=== PATIENT | female | born 1950 | race Caucasian/White ===

== ENCOUNTER → 2022-02-24 12:25 | Outpatient (CLI) | payer MEDICARE, OTHER, SELFPAY ==
[2022-02-24 14:35] LABS: Chloride 105 mmol/L (98-107)
[2022-02-24 14:36] LABS: Potassium 4.5 mmoL/L (3.5-5.1); Sodium 138 mmol/L (136-145)
[2022-02-24 14:38] LABS: Alanine Aminotransferase 19 U/L (12-78); Alkaline Phosphatase 65 U/L (38-126); Anion Gap 11.5 mEq/L (5-15); Aspartate Amino Transferase 26 U/L (14-36); Bilirubin,Total 0.5 mg/dl (0.2-1.3); Blood Urea Nitrogen 22 mg/dl (7-17); Carbon Dioxide 26 mmol/L (22.0-30.0); Cholesterol 231 mg/dl (140-200); Estimated Glomerular Filt Rate 82 ml/min (>60); GFR (African American) 100 ML/MIN (>60); Triglycerides 378 mg/dl (30-150); VLDL Cholesterol 76 mg/dL (0-40)
[2022-02-24 14:39] LABS: Albumin Level 3.9 g/dl (3.5-5.0); Albumin/Globulin Ratio 1.6 (1.1-1.8); Chol/HDL Ratio 4.6 (1-3.5); Globulin 2.5 g/dL (1.3-3.2); Glucose 78 mg/dl (74-100); HDL Cholesterol 50 mg/dl (40-60); Total Protein,Serum 6.4 g/dl (6.3-8.2)
[2022-02-24 14:51] LABS: Direct LDL Cholesterol 109.39 mg/dL (100-129)
[2022-02-24 15:21] LABS: Thyroid Stimulating Hormone 0.69 uIU/mL (0.465-4.68)
== END ==
PROVIDERS: PCP Internal Medicine; Visit Provider Internal Medicine
DX: I10 Essential (primary) hypertension (principal); E78.5 Hyperlipidemia, unspecified; R63.5 Abnormal weight gain; R53.83 Other fatigue
CPT/HCPCS: 80053; 80061; 84443

== ENCOUNTER → 2022-08-30 09:19 | Outpatient (CLI) | payer MEDICARE, OTHER, SELFPAY ==
[2022-08-30 17:32] LABS: Basophils # 0.1 K/mm3 (0-0.2); Basophils % 1.3 % (0.1-2.0); Eosinophils # 0.2 K/mm3 (0.0-0.4); Eosinophils % 2.8 % (0.1-12.0); Hematocrit 42.8 % (37.0-47.0); Lymphocytes # 2.9 K/mm3 (0.7-4.5); Lymphocytes % 42.4 % (10-50); Mean Corpuscular HGB Conc 32.6 g/dL (31.8-35.4); Mean Corpuscular Hemoglobin 31.6 pg (27.0-31.2); Mean Platelet Volume 10.2 fl (7.4-10.4); Monocytes # 0.4 K/mm3 (0.1-1.0); Neutrophils # 3.2 K/mm3 (1.8-7.8); Neutrophils % 47.4 % (37.0-80.0); Platelet Count 374 K/mm3 (142-424); Red Blood Count 4.41 M/mm3 (4.20-5.40); Red Cell Distribution Width 13.8 % (11.5-17.5); White Blood Count 6.8 K/mm3 (4.8-10.8)
[2022-08-30 19:21] LABS: Alanine Aminotransferase 25 U/L (12-78); Albumin/Globulin Ratio 1.6 (1.1-1.8); Alkaline Phosphatase 71 U/L (38-126); Anion Gap 17.5 mEq/L (5-15); Aspartate Amino Transferase 33 U/L (14-36); Bilirubin,Total 0.4 mg/dl (0.2-1.3); Blood Urea Nitrogen 20 mg/dl (7-17); Calcium 8.9 mg/dl (8.4-10.2); Carbon Dioxide 24 mmol/L (22.0-30.0); Chloride 100 mmol/L (98-107); Chol/HDL Ratio 4.4 (1-3.5); Cholesterol 224 mg/dl (140-200); Estimated Glomerular Filt Rate 98 ml/min (>60); GFR (African American) 119 ML/MIN (>60); Globulin 2.5 g/dL (1.3-3.2); Glucose 77 mg/dl (74-100); HDL Cholesterol 51 mg/dl (40-60); Potassium 4.5 mmoL/L (3.5-5.1); Sodium 137 mmol/L (136-145); Total Protein,Serum 6.5 g/dl (6.3-8.2); Triglycerides 386 mg/dl (30-150); VLDL Cholesterol 77 mg/dL (0-40)
[2022-08-30 19:33] LABS: Direct LDL Cholesterol 107.48 mg/dL (100-129)
== END ==
PROVIDERS: PCP Internal Medicine; Visit Provider Internal Medicine
DX: I10 Essential (primary) hypertension (principal); E78.5 Hyperlipidemia, unspecified; E87.1 Hypo-osmolality and hyponatremia
CPT/HCPCS: 80053; 80061; 85025

== ENCOUNTER → 2022-09-12 12:37 | Outpatient (CLI) | payer MEDICARE, OTHER, SELFPAY ==
--- NOTE | 2022-09-12 12:44 | MM_ITS ---
PROCEDURE INFORMATION: Exam: MG Bilateral Screening 3D Mammography Exam date and time: 09/12/2022 12:52 PM Age: 72 years old Clinical indication: Screening examination. Her niece had breast cancer. TECHNIQUE: Imaging protocol: Bilateral Screening tomosynthesis and 2D mammography including computer-aided detection (CAD) when performed. COMPARISON: 1. MG DMSB DIG MAMM-SCREEN HAYLIE W/CAD 10/02/2017 4:22 PM 2. MG DMSB DIG MAMM-SCREEN HAYLIE 08/31/2016 10:55 AM 3. MG DMSB DIG MAMM-SCREEN HAYLIE 07/29/2015 1:45 PM 4. MG DMSB DIG MAMM-SCREEN HAYLIE 07/13/2014 4:59 PM FINDINGS: MAMMOGRAPHY: Breast composition: There are scattered areas of fibroglandular density. Mass/Asymmetric density: Focal tubular nodular asymmetries, up to 1-1.5 cm, in the left upper outer quadrant middle to posterior 3rd and 11-12:00 posterior 3rd, CC frame 45 and MLO frame 33. Architectural distortion: None. Calcifications: No suspicious calcifications. Skin thickening: None. Axillary adenopathy: None. IMPRESSION: Patient to be recalled for left diagnostic mammographic spot compression in CC and MLO and left breast ultrasound for further evaluation of tubular asymmetries which may be dilated ducts in deeper aspect of the breast. ASSESSMENT: BI-RADS Category 0: Incomplete- Need Additional Imaging Evaluation and/or Prior Mammograms for Comparison
== END ==
PROVIDERS: PCP Internal Medicine; Visit Provider Internal Medicine
DX: Z12.31 Encounter for screening mammogram for malignant neoplasm of breast (principal)
CPT/HCPCS: 77063; 77067

== ENCOUNTER → 2022-09-25 09:46 | Outpatient (POV) | payer MEDICARE, OTHER, SELFPAY ==
[2022-09-25 10:04] VITALS: BP 112/90; PULSE 111; RESP 20; TEMP 36.7; O2SAT 98; BMI 31.7
--- NOTE | 2022-09-25 10:35 | EXP.PAIN.OV ---
HPI Data of Consult Patient: new to practice Consult date: 09/25/22 Requesting Physician: Ann Sepulveda APRN Primary Care Provider: Cayetano Valdez MD Consult Narrative History of present illness: Ms. Claros is a 72 year old female who presents today as a new patient. She is a referral from Cayetano Valdez's office. Today she rates her pain a 5 out of 10. She states her pain is in her mid to low back with no radiating symptoms into her lower extremities. Patient denies any new trauma or injury. Patient states this has been going on for years and has progressively worsened over time. Patient does describe this as a aching, throbbing sensation that is constant but worse with increased activity. Patient states her low back pain is chronic and frequently has radiating symptoms up her mid back. Patient does have a history of bursitis which she has gotten injections in the past for. Her last injection was on her left bursa on September 03. Patient states she did get significant relief with this injection however she did then go on a trip to [place] and was on her feet extensively which caused additional pain. Patient states she has also had epidural injections in the past that provided improvement. She has had back surgery in October 2015 where they did a left L4-5 laminotomy with decompression of the left L5 nerve root. Patient states she has been to physical therapy in the past around 2018. Patient states she does use a heating pad for her back that helps provide improvement and ice to her hip. Patient also uses [id number] Biofreeze and Aspercreme as needed. Patient is prescribed meloxicam turmeric and a muscle relaxer as needed. Patient also uses [id number] Tylenol arthritis to provide improvement of her symptoms. Patient did present today with 2014 imaging that showed multilevel facet arthropathy, degenerative disc disease of lumbar spine with multilevel neural foraminal narrowing patient is not on any blood thinners. Patient has not had any additional imaging. Patient is currently managed with Enterra mean by Dr. Valdez's office. Her Adrián is [id number]. It has been reviewed and appropriate. CC: Ann Sepulveda APRN [facility] Medical History (Updated 09/25/22 @ 10:40 by Ann Sepulveda APRN) Bilateral cataracts Degenerative disc disease, lumbar History of left heart catheterization (LHC) HLD (hyperlipidemia) HTN (hypertension) Osteoarthritis Surgical History (Updated 09/25/22 @ 10:10 by Fela Martin, BRANDON) H/O arthroscopy of right knee H/O repair of left rotator cuff H/O tubal ligation History of cholecystectomy History of total abdominal hysterectomy Social History (Updated 09/25/22 @ 10:11 by Fela Martin, RN) Smoking Status: Never smoker alcohol intake: never current occupational status: retired Travel in the last 8 weeks: None Review of Systems Review of Systems Review of systems:: pertinent systems reviewed and negative unless documented below Review of systems (narrative): Review of Systems: General: No recent weight changes, no fever, no sleep disturbances Respiratory: No cough, no shortness of air, no recurring pulmonary infections Cardiovascular/peripheral vascular: No chest pain, no palpitations, no edema, no shortness of breath Gastrointestinal: No new onset incontinence, normal bowel movements reported Genitourinary: No new onset incontinence Musculoskeletal: Mid/low back pain Psychiatric: [Normal mood/affect] Neurological: [Denies weakness in extremities], [denies balance issues] Meds Home Medications and Allergies Home Medications Medication Instructions Recorded Confirmed Type cetirizine 10 mg tablet 10 mg PO DAILY ALLERGIES 09/25/22 09/25/22 History cyclobenzaprine 5 mg tablet 5 mg PO TIDP PRN MUSCLE SPASMS 09/25/22 09/25/22 History estradiol 1 mg tablet 1 mg PO DAILY HRT 09/25/22 09/25/22 History losartan 50 mg tablet 50 mg PO DAILY BLOOD PRESSURE 09/25/22 09/25/22 Histor
== END ==
PROVIDERS: PCP Internal Medicine; Visit Provider Nurse Practitioner Family
DX: M51.36 Other intervertebral disc degeneration, lumbar region (principal); M47.816 Spondylosis without myelopathy or radiculopathy, lumbar region; M54.6 Pain in thoracic spine
CPT/HCPCS: 99202; G0463

== ENCOUNTER 2022-09-29 14:42 | Day surgery (SDC) | payer MEDICARE, OTHER, SELFPAY ==
[2022-09-29 15:05] VITALS: BP 163/89; PULSE 96; RESP 20; TEMP 36.4; O2SAT 96; BMI 31.7
[2022-09-29 15:42] VITALS: BP 150/83; PULSE 87; RESP 18; O2SAT 96
[2022-09-29 15:45] VITALS: BP 150/83; PULSE 87; RESP 18; O2SAT 96
[2022-09-29 16:11] VITALS: BP 136/85; PULSE 83; RESP 20
--- NOTE | 2022-09-29 16:17 | P.PCN_ITS ---
Procedure Date: 09/29/22 Time: 16:19 Anesthesiologist:: Cristian May MD Complications:: None Pre-procedure Diagnosis:: Degenerative disc disease of thoracic spine with thoracic radiculopathy symptoms and increasing mid back pain. Post-procedure Diagnosis:: Same Indications for Procedure:: Patient is a pleasant 72-year-old white female who we are treating for mid back pain and degenerative disc disease of thoracic spine with thoracic radiculopathy symptoms. We will do a thoracic epidural steroid injection today to see if this helps with her pain symptoms. Procedure Details:: Thoracic epidural steroid injection under fluoroscopy Informed consent was obtained risk and benefits of the procedure were explained the patient. Patient was taken the procedure room. Mid back was prepped using ChloraPrep. The skin and subtenons tissues were anesthetized using lidocaine. A 17-gauge epidural needle was inserted and advanced into the T11-T12 interspace. After confirmation of needle placement in the epidural space a catheter was inserted and advanced to the T3-T4 interspace. There was good spread of dye throughout the thoracic epidural space. We then injected Depo- Medrol 80 mg plus saline 2 mL. Patient tolerated procedure well with no complications. Plan and disposition: Follow-up with this patient 2 weeks. Will reevaluate her symptoms at that time. Plan and Disposition:: We will follow-up with this patient in 2 weeks. Will reevaluate symptoms at that time.
== END 2022-09-29 16:12 | disposition home or self-care (01) ==
LOC: SC.PAINP 14:46
PROVIDERS: PCP Internal Medicine; Visit Provider Anesthesiology
DX: M51.14 Intervertebral disc disorders with radiculopathy, thoracic region (principal)
CPT/HCPCS: 62321; J1040; Q9966

== ENCOUNTER → 2022-10-04 13:50 | Outpatient (CLI) | payer MEDICARE, OTHER, SELFPAY ==
--- NOTE | 2022-10-04 13:53 | MM_ITS ---
PROCEDURE INFORMATION: Exam: US Left Breast, Complete MG Left Diagnostic Breast Tomosynthesis Exam date and time: 10/04/2022 1:51 PM Age: 72 years old Clinical indication: Patient recalled on the basis of a screening mammogram for further evaluation; Left breast; asymmetries TECHNIQUE: Imaging protocol: Complete ultrasound of all four quadrants of the Left breast and the retroareolar regions, including ultrasound of the axilla when performed. Left Diagnostic tomosynthesis and 2D mammography including computer-aided detection (CAD) when performed. Unilateral or bilateral exam. COMPARISON: 1. MG MM DIG SCREENING MAMM BI W/CAD 09/12/2022 12:52 PM 2. MG DMSB DIG MAMM-SCREEN HAYLIE W/CAD 10/02/2017 4:22 PM FINDINGS: MAMMOGRAPHY: Digital diagnostic spot compression views of the left breast and 90 degree lateral view of the left breast demonstrate normal overlapping fibroglandular structures without persistent mass or asymmetry identified. ULTRASOUND: Sonographic images of the left breast including the retroareolar region, all 4 quadrants and the axilla do not demonstrate any solid masses. Superficial 0.5 cm cyst in the 3 o'clock axis 2 cm from the nipple. Cursors were placed over normal portion of duct in the upper outer quadrant. No architectural distortion or acoustical shadowing. No skin thickening or axillary adenopathy. IMPRESSION: No mammographic or sonographic evidence of malignancy. Annual bilateral mammographic screening is recommended unless otherwise clinically indicated. ASSESSMENT: BI-RADS Category 2: Benign
== END ==
PROVIDERS: PCP Internal Medicine; Visit Provider Internal Medicine
DX: R92.8 Other abnormal and inconclusive findings on diagnostic imaging of breast (principal)
CPT/HCPCS: 76641; 77061; 77065; G0279

== ENCOUNTER → 2022-10-12 15:06 | Outpatient (POV) | payer MEDICARE, OTHER, SELFPAY ==
[2022-10-12 15:27] VITALS: BP 143/71; PULSE 95; RESP 18; O2SAT 97; BMI 31.7
--- NOTE | 2022-10-12 15:41 | EXP.PAIN.SOA ---
[facility] Pain Management SOAP Note Subjective:: Patient is a pleasant 72-year-old female who presents today for follow-up of thoracic epidural steroid injection at T3-T4 on 09/29/2022. We are currently treating the patient for degenerative disc disease of thoracic and lumbar spine with thoracic and lumbar radiculopathy symptoms, mid back pain, low back pain. Today the patient states that she has had at least 50 to 60% improvement following this injection and feels like it is continuing to give relief. Today she rates her pain a 4 out of 10. She states the pain is in her mid to low back and her left hip. Patient states that she has had bursa injections in the past from a different provider that provided significant improvement. Patient denies any new trauma or injury. She states she did recently have to go to the airport and was running to find her plane as well as increased walking and feels like she may have aggravated her pain symptoms. Patient does have a history of L4-L5 laminectomy with decompression of the left L5 nerve root. Patient has been to physical therapy in the past that provided some improvement. She also continues to use a heating pad as well as ice and Biofreeze and Aspercreme. Patient was prescribed Flexeril 5 mg 3 times daily as needed and states this does provide additional improvement. Patient will also occasionally use Tylenol arthritis as well. Patient was prescribed compounding cream at our last visit and states this has provided some additional improvement of her symptoms. Her Adrián is [phone]. It has been reviewed and appropriate. Review of Systems: General: No recent weight changes, no fever, no sleep disturbances Respiratory: No cough, no shortness of air, no recurring pulmonary infections Cardiovascular/peripheral vascular: No chest pain, no palpitations, no edema, no shortness of breath Gastrointestinal: No new onset incontinence, normal bowel movements reported Genitourinary: No new onset incontinence Musculoskeletal: Mid/low back pain, left hip pain Psychiatric: [Normal mood/affect] Neurological: [Denies weakness in extremities], [denies balance issues] Objective:: Physical Exam: General: Alert and oriented x3, no acute distress, pleasant and cooperative Lungs: Respirations even and unlabored, symmetrical chest expansion Eyes: PERRL Musculoskeletal: Flexion and extension of lumbar [spine] somewhat guarded secondary to pain, [antalgic gait noted]point tenderness along the left greater trochanteric bursa Neurological: Speech clear, no gross sensory deficit Assessment:: Degenerative disc disease of thoracic and lumbar spine with thoracic and lumbar radiculopathy symptoms, mid back pain, low back pain, left greater trochanteric bursitis Plan:: Patient is experiencing worsening left hip pain at today's visit. Patient did have limited range of motion of her lumbar spine and point tenderness along her left greater trochanteric bursa. I have discussed with the patient that she may benefit from a left greater trochanteric bursa injection. Risk and benefits were discussed with the patient. She would like to proceed forward with this plan of care. We will schedule her for a left bursa injection at today's visit. Patient has been instructed to contact the clinic with any concerns before the next appointment. Dr. May has reviewed this note and agrees with this plan of care. This note was dictated using voice recognition software and make contain errors or omissions. [facility] Medical History (Updated 09/29/22 @ 15:09 by Karlee Smith RN) Allergies Bilateral cataracts Degenerative disc disease, lumbar GERD (gastroesophageal reflux disease) History of left heart catheterization (LHC) HLD (hyperlipidemia) HTN (hypertension) Osteoarthritis Surgical History H/O arthroscopy of right knee H/O repair of left rotator cuff H/O tubal ligation History of cholecystectomy History of
== END ==
PROVIDERS: PCP Internal Medicine; Visit Provider Nurse Practitioner Family
DX: M51.16 Intervertebral disc disorders with radiculopathy, lumbar region (principal); M51.14 Intervertebral disc disorders with radiculopathy, thoracic region
CPT/HCPCS: 99212; G0463

== ENCOUNTER → 2022-10-24 11:17 | Day surgery (SDC) | payer MEDICARE, OTHER, SELFPAY ==
[2022-10-24 11:35] VITALS: BP 147/84; PULSE 95; RESP 18; TEMP 36.6; O2SAT 97; BMI 31.7
[2022-10-24 11:42] VITALS: BP 131/90; PULSE 88; RESP 18; O2SAT 97
[2022-10-24 11:43] VITALS: BP 131/90; PULSE 88; RESP 18; O2SAT 97
--- NOTE | 2022-10-24 12:07 | P.PCN_ITS ---
Procedure Date: 10/24/22 Time: 11:30 Anesthesiologist:: Morris Berger CRNA Complications:: None Pre-procedure Diagnosis:: Left lateral hip pain. Post-procedure Diagnosis:: Same Indications for Procedure:: Patient is a pleasant 72-year-old female that comes our clinic today for left trochanteric bursa injection. Patient complains of left lateral hip pain that she references as severe. She rates it 8/10. Pain increases with ambulating. Patient unable to sleep on the left side. Procedure Details:: Procedure:Left trochanteric bursa injection under fluoroscopy We then moved to the left trochanteric bursa.~ C-arm fluoroscopy was used to view the left greater trochanter.~ The skin and subcutaneous tissues overlying the left greater trochanter were anesthetized using lidocaine, 1.5% and a 25- gauge needle.~ After this, a 22-gauge spinal needle was inserted and advanced until it contacted the left greater trochanter.~ Dye was injected and good spread was seen throughout the left trochanteric bursa. After this, approximately 5 mL of bupivacaine, 0.25% and Depo-Medrol, 40 mg was incrementally injected into the left trochanteric bursa.~ The patient tolerated the procedure well with no complications. Plan and Disposition:: Patient was discharged without incident.
== END | disposition home or self-care (01) ==
PROVIDERS: PCP Internal Medicine; Visit Provider Nurse Anesthetist, Certified Registered
DX: M70.62 Trochanteric bursitis, left hip (principal); M51.16 Intervertebral disc disorders with radiculopathy, lumbar region; M51.14 Intervertebral disc disorders with radiculopathy, thoracic region
CPT/HCPCS: 20610; J1040

== ENCOUNTER → 2022-11-06 10:48 | Outpatient (POV) | payer MEDICARE, OTHER, SELFPAY ==
[2022-11-06 11:04] VITALS: BP 139/82; PULSE 91; RESP 18; O2SAT 97; BMI 31.2
--- NOTE | 2022-11-06 11:17 | EXP.PAIN.SOA ---
[facility] Pain Management SOAP Note Subjective:: Patient is a pleasant 72-year-old female who presents today for follow-up of left trochanteric bursa injection on 10/24/2022. We are currently treating the patient for degenerative disc disease of thoracic and lumbar spine with thoracic and lumbar radiculopathy symptoms, mid back pain, low back pain. Today the patient states she has had at least 80% improvement in her hip symptoms following this injection and feels like it is still continuing to provide relief. Patient rates her pain a 3 out of 10. Patient denies any new trauma or injury. Patient denies any change to location or type of pain she experiences. Patient previously had a thoracic epidural steroid injection at T3-T4 on 09/29/2022. Patient states this injection has still been providing relief. Patient has a history of of L4-L5 laminectomy with decompression on the left L5 nerve root. Patient continues to use Tylenol arthritis and compounding cream to provide additional relief. Patient states she has had significant improvement following her injections and feels like she is able to get around with decreased pain symptoms. Patient states that she was able to go shopping the other day and spent all day on her feet without having to sit down due to the pain. Her Adrián is [phone]. It is been reviewed and appropriate. Review of Systems: General: No recent weight changes, no fever, no sleep disturbances Respiratory: No cough, no shortness of air, no recurring pulmonary infections Cardiovascular/peripheral vascular: No chest pain, no palpitations, no edema, no shortness of breath Gastrointestinal: No new onset incontinence, normal bowel movements reported Genitourinary: No new onset incontinence Musculoskeletal: Hip pain Psychiatric: [Normal mood/affect] Neurological: [Denies weakness in extremities], [denies balance issues] Objective:: Physical Exam: General: Alert and oriented x3, no acute distress, pleasant and cooperative Lungs: Respirations even and unlabored, symmetrical chest expansion Eyes: PERRL Musculoskeletal: Flexion and extension of lumbar [spine] somewhat guarded secondary to pain, [antalgic gait noted] Neurological: Speech clear, no gross sensory deficit Assessment:: Degenerative disc disease of thoracic and lumbar spine with thoracic and lumbar radiculopathy symptoms, mid back pain, low back pain Plan:: Patient has had significant improvement of her symptoms following her left bursa injection. At this time the patient does not require any additional injective therapy. Patient will return to clinic in 3 months for reevaluation of symptoms and follow-up. Patient has been instructed to contact the clinic with any concerns before the next appointment. Dr. May has reviewed this note and agrees with this plan of care. This note was dictated using voice recognition software and make contain errors or omissions. [facility] Disclaimer: The information contained in this section may have been updated after the patient was seen, as this information can be updated by other users. Medical History Allergies Bilateral cataracts Degenerative disc disease, lumbar GERD (gastroesophageal reflux disease) History of left heart catheterization (LHC) HLD (hyperlipidemia) HTN (hypertension) Osteoarthritis Surgical History H/O arthroscopy of right knee H/O repair of left rotator cuff H/O tubal ligation History of cholecystectomy History of total abdominal hysterectomy Family History Other No significant family history Social History Smoking Status: Never smoker alcohol intake: never current occupational status: retired Travel in the last 8 weeks: None
== END ==
PROVIDERS: PCP Internal Medicine; Visit Provider Nurse Practitioner Family
DX: M51.16 Intervertebral disc disorders with radiculopathy, lumbar region (principal); M51.14 Intervertebral disc disorders with radiculopathy, thoracic region
CPT/HCPCS: 99212; G0463

== ENCOUNTER → 2022-12-08 09:55 | Outpatient (CLI) | payer MEDICARE, OTHER, SELFPAY ==
--- NOTE | 2022-12-08 10:01 | CT_ITS ---
FINAL REPORT CLINICAL HISTORY: MEMORY LOSS,CONFUSION FINDINGS: Axial images of the head were obtained without contrast. Coronal reformatted images were also obtained. This study was performed with techniques to keep radiation doses as low as reasonably achievable (ALARA). Individualized dose reduction techniques using automated exposure control or adjustment of mA and/or kV according to the patient''s size were employed. There is generalized age-appropriate atrophy. Periventricular low-attenuation areas are seen consistent with mild chronic ischemic changes. There is a small chronic lacunar infarct in the anterior left thalamus. There is no evidence of intracranial hemorrhage or mass. There is no evidence of acute infarct. There is no evidence of shift of the midline structures. No skull abnormality is seen on the bone window images. IMPRESSION: Atrophy and mild periventricular chronic ischemic changes. No acute intracranial abnormality identified. Reviewed, Interpreted and Dictated by Bg Kelley III, MD Transcribed by Lorie Rievra Authenticated and [facility]
[2022-12-08 12:51] LABS: Basophils # 0.1 K/mm3 (0-0.2); Basophils % 1.2 % (0.1-2.0); Eosinophils # 0.2 K/mm3 (0.0-0.4); Eosinophils % 3.4 % (0.1-12.0); Hematocrit 44.8 % (37.0-47.0); Hemoglobin 13.6 g/dL (12.2-16.2); Lymphocytes # 3.1 K/mm3 (0.7-4.5); Lymphocytes % 43.6 % (10-50); Mean Corpuscular HGB Conc 30.3 g/dL (31.8-35.4); Mean Corpuscular Hemoglobin 31.1 pg (27.0-31.2); Mean Corpuscular Volume 102.8 fl (81-99); Mean Platelet Volume 9.3 fl (7.4-10.4); Monocytes # 0.3 K/mm3 (0.1-1.0); Monocytes % 4.1 % (1.7-9.3); Neutrophils # 3.3 K/mm3 (1.8-7.8); Neutrophils % 47.6 % (37.0-80.0); Platelet Count 422 K/mm3 (142-424); Red Blood Count 4.36 M/mm3 (4.20-5.40); Red Cell Distribution Width 14.1 % (11.5-17.5)
[2022-12-08 13:10] LABS: Alanine Aminotransferase 25 U/L (12-78); Albumin Level 4.2 g/dl (3.5-5.0); Albumin/Globulin Ratio 1.6 (1.1-1.8); Alkaline Phosphatase 68 U/L (38-126); Anion Gap 8.5 mEq/L (5-15); Aspartate Amino Transferase 30 U/L (14-36); Bilirubin,Total 0.5 mg/dl (0.2-1.3); Blood Urea Nitrogen 19 mg/dl (7-17); Calcium 9.4 mg/dl (8.4-10.2); Carbon Dioxide 27 mmol/L (22.0-30.0); Chloride 104 mmol/L (98-107); Estimated Glomerular Filt Rate 82 ml/min (>60); GFR (African American) 99 ML/MIN (>60); Globulin 2.6 g/dL (1.3-3.2); Glucose 92 mg/dl (74-100); Potassium 4.5 mmoL/L (3.5-5.1); Sodium 135 mmol/L (136-145); Total Protein,Serum 6.8 g/dl (6.3-8.2)
[2022-12-08 14:01] LABS: Vitamin B12 806 pg/mL (239-931)
[2022-12-08 15:12] LABS: Erythrocyte Sedimentation Rate 23 mm/hr (0-30)
[2022-12-08 18:14] LABS: Free T4 (Free Thyroxine) 1.22 ng/dl (0.78-2.19)
== END ==
PROVIDERS: PCP Internal Medicine; Visit Provider Internal Medicine
DX: I10 Essential (primary) hypertension (principal); E03.9 Hypothyroidism, unspecified; E78.5 Hyperlipidemia, unspecified; R41.3 Other amnesia; R41.0 Disorientation, unspecified
CPT/HCPCS: 70450; 80053; 82607; 84439; 84443; 85025; 85651

== ENCOUNTER → 2022-12-28 10:53 | Outpatient (CLI) | payer MEDICARE, OTHER, SELFPAY ==
[2022-12-28 12:54] LABS: Folate > 20.00 ng/mL
[2022-12-29 18:08] LABS: Rapid Plasma Reagin Ab Titer Non Reactive (NonRea<1:1)
[2022-12-30 06:07] LABS: Antinuclear Antibodies (ANA) Negative
== END ==
PROVIDERS: PCP Internal Medicine; Visit Provider Nurse Practitioner Family
DX: E78.5 Hyperlipidemia, unspecified (principal); G31.84 Mild cognitive impairment of uncertain or unknown etiology; I10 Essential (primary) hypertension; R06.83 Snoring; R47.89 Other speech disturbances; Z68.31 Body mass index [BMI] 31.0-31.9, adult; Z86.69 Personal history of other diseases of the nervous system and sense organs
CPT/HCPCS: 36415; 82746; 86038; 86225; 86235; 86593

== ENCOUNTER → 2023-01-04 12:39 | Outpatient (CLI) | payer MEDICARE, OTHER, SELFPAY ==
--- NOTE | 2023-01-04 12:39 | MR_ITS ---
FINAL REPORT CLINICAL HISTORY: Transient alteration in awareness, eval for CVA. FINDINGS: Multiplanar MR imaging of the brain was performed without and with contrast. There is mild abnormal signal involving the periventricular and subcortical white matter. No foci of cortical signal abnormality is seen. There is no evidence of intracranial hemorrhage or mass. No abnormal extra-axial fluid collection is seen. The ventricular size is within normal limits. There is no evidence of shift of the midline structures. The posterior fossa and brainstem have an unremarkable appearance. No area of abnormal restricted diffusion is identified. No abnormal contrast enhancement is seen. Normal major vessel vascular flow voids are noted. Paranasal sinuses demonstrate normal signal voids. IMPRESSION: No acute intracranial abnormality identified. Reviewed, Interpreted and Dictated by Ricki Chase MD Transcribed by Janie Welch Authenticated and [facility]
--- NOTE | 2023-01-04 12:39 | MR_ITS ---
FINAL REPORT CLINICAL HISTORY: Eval for aneurysm, stenosis FINDINGS: Multiple projection images of the brain arterial vasculature were obtained without contrast. The raw data images were also reviewed. The distal internal carotid, distal vertebral and basilar arteries have an unremarkable appearance without evidence of significant stenosis or occlusion. The proximal anterior, middle and posterior cerebral arteries have an unremarkable appearance. There is no evidence of significant stenosis or major branch occlusion. No aneurysm or vascular malformation is identified. IMPRESSION: Unremarkable MR angiogram of the head. Reviewed, Interpreted and Dictated by Ricki Chase MD Transcribed by Janie Welch Authenticated and [facility]
--- NOTE | 2023-01-04 12:39 | MR_ITS ---
FINAL REPORT CLINICAL HISTORY: Eval for aneurysm, stenosis FINDINGS: Multiple projection images of the neck arterial vasculature were obtained without contrast. The raw data images were also reviewed. There is tortuosity of the proximal right ICA. The right common carotid artery otherwise has an unremarkable appearance without evidence of stenosis or occlusion. The right internal carotid artery has an unremarkable appearance without evidence of stenosis or occlusion. The right external carotid artery is patent. The right vertebral artery is patent without evidence of stenosis. There is tortuosity of the proximal left ICA. The left common carotid artery otherwise has an unremarkable appearance without evidence of stenosis or occlusion. The left internal carotid artery is patent without evidence of stenosis or occlusion. The left external carotid artery is patent. The left vertebral artery is patent without evidence of stenosis. The left vertebral artery is dominant. Vertebral arteries are patent bilaterally. IMPRESSION: Tortuosity of the proximal ICAs bilaterally without significant stenosis or occlusion. Reviewed, Interpreted and Dictated by Ricki Chase MD Transcribed by Janie Welch Authenticated and [facility]
--- NOTE | 2023-01-04 14:37 | CA_ITS ---
APPROVED REPORT EXAM: Comprehensive 2D, Doppler, and color-flow Echocardiogram Music Historian: Katia Ruiz, RCS, RVS Ht: 5 ft 4 in Wt: 186lbs BSA: 1.90 BP: 142/78 mmHg Indications: TIA/CVA, HLD, family hx-HD/AFIB Echo Enhancing Agent Comments: Poor acoutics throughout exam. 2D Dimensions LVOT 2.00 cm (M/F) 1.5-2.5 LA Volume 38.00 mL LA Volume Index 19.60 mL/m2 (M/F) 16-34 M-Mode Dimensions RVDd 1.76 cm (0.9-2.6) LA Diam 3.87 cm (1.9-4.0) LVDd 3.97 cm (3.5-5.7) Ao Diam 2.66 cm (2.0-3.7) LVDs 2.68 cm (3.5-5.7) IVSd 1.08 cm (0.6-1.1) PWd 0.84 cm (0.6-1.1) EF (Teich) 61.50% EPSs 0.52 cm FS 32.50% EDV (Teich) 68.80 mL ESV (Teich) 26.50 mL LV Diastology E Decel Time 227.00 (160-240 msec) E/A Ratio 0.73 MED E' 7.00 (< 7 cm/sec) MED A' 10.50 cm/s E'/MED E' Ratio 8.51 (>14) LAT E' 5.60 (<10 cm/sec) LAT A' 7.80 cm/s E/LAT E' Ratio 10.64 (>14) Aortic Valve LVOT Max 95.00 (70-110 cm/s) LVOT VTI 21.53 cm AoV Peak Sim. 98.00 (50-130 cm/s) AO Peak GR. 3.80 mmHg AO Mean GR. 1.90 (<5 mmHg) AO VTI 22.55 (18-25 cm) RIVERA (VTI) 3.00 (2.5-4.5 cm2) Mitral Valve MV A Velocity 82.00 (40-130 cm/s) E/A Ratio 0.73 MV Decel. Time 227.00 (160-240 ms) MV PHT 63.00 ms Pulmonary Valve PV Peak Velocity 79.00 (50-150 cm/s) Tricuspid Valve TR P. Velocity 203.00 cm/s RAP Estimate 10.00 mmHg RVSP 26.50 mmHg Left Ventricle Left atrium is mildly enlarged, left ventricle is normal size mild concentric left ventricular hypertrophy, estimated ejection fraction 55% with no regional wall motion abnormality. Grade 1 diastolic dysfunction seen with tissue Doppler evidence of raised left atrial pressure. Right Ventricle Right atrium and right ventricle are normal size and contractility. Aortic Valve Aortic valve is minimally thickened and calcified without aortic stenosis or aortic insufficiency. Mitral Valve Mitral valve has mitral calcification, there is no mitral stenosis, there is trace mitral regurgitation. Tricuspid Valve Tricuspid grossly normal, there is trace tricuspid regurgitation, tricuspid regurgitation jet plus is inadequate for calculation of the right ventricular systolic pressure. Pulmonic Valve Pulmonic valve is poorly visualized. Great Vessels Aortic root is normal size. Inferior vena cava is poorly visualized. Pericardium No significant pericardial effusion noted. Conclusion 1. Mildly in the left atrium, normal left ventricular size, mild concentric left ventricular hypertrophy, estimated ejection fraction 55% with no regional wall motion abnormality, grade 1 diastolic dysfunction seen without tissue Doppler evidence of trace left atrial pressure. 2. Trace mitral and tricuspid regurgitation. 3. No significant pericardial effusion. 4. Inferior vena cava is poorly visualized. Electronically signed by : John Xie MD 01/05/2023 18:37:48
== END ==
PROVIDERS: PCP Internal Medicine; Visit Provider Nurse Practitioner Family
DX: G31.84 Mild cognitive impairment of uncertain or unknown etiology; R47.89 Other speech disturbances; I10 Essential (primary) hypertension; E78.5 Hyperlipidemia, unspecified; R06.83 Snoring; E66.9 Obesity, unspecified; Z68.31 Body mass index [BMI] 31.0-31.9, adult; Z86.69 Personal history of other diseases of the nervous system and sense organs
CPT/HCPCS: 70544; 70547; 70553; 93306; A9576

== ENCOUNTER → 2023-01-09 11:34 | Outpatient (CLI) | payer MEDICARE, OTHER, SELFPAY ==
--- NOTE | 2023-01-09 11:45 | ECG_ITS ---
APPROVED REPORT Exam: Resting ECG HR:67 bpm ECG Measurements Heart Rate 67 AXES FL 146 P 58 QRSd 81 QRS 58 QT 381 T 50 QTc 397 Conclusion SINUS RHYTHM WITH SINUS ARRHYTHMIA NORMAL ECG UNCONFIRMED REPORT Electronically signed by : Javi Morales MD 01/09/2023 21:15:26
== END ==
PROVIDERS: PCP Internal Medicine; Visit Provider Nurse Practitioner Family
DX: R55 Syncope and collapse; G31.84 Mild cognitive impairment of uncertain or unknown etiology; R47.89 Other speech disturbances; I10 Essential (primary) hypertension; E78.5 Hyperlipidemia, unspecified; R06.83 Snoring; Z68.31 Body mass index [BMI] 31.0-31.9, adult; Z86.69 Personal history of other diseases of the nervous system and sense organs
CPT/HCPCS: 93005; 93270; 94762

== ENCOUNTER → 2023-03-08 10:29 | Outpatient (POV) | payer MEDICARE, OTHER, SELFPAY ==
--- NOTE | 2023-03-08 11:12 | EXP.PAIN.SOA ---
[facility] Pain Management SOAP Note Subjective:: Patient is a pleasant 72-year-old female who presents today for follow-up. 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 Today she rates her pain at a 5 out of 10. Patient denies any new trauma or injury. Patient denies any change location or type of pain she experiences. She does state that she is starting to have more low back pain as well as her hip pain. Patient has previously had epidurals and bursa injections that did provide significant relief of 80% or more. She does state that she recently went to her primary care doctor who did do a left hip bursa injection however it only lasted a couple days. She does state that she knew she would be able to get into our office to get the injection before she leaves on vacation next week. Patient does describe her pain as an aching, throbbing sensation that is constant. It does interfere with her ability to perform activities of daily living such as cooking and cleaning. She does feel like she is no stamina due to her pain. Patient continues to use her compounding cream for additional improvement. She does state that she was recently diagnosed with some cardiac issues including A-fib. She states the budget specialist did take her off of the meloxicam. Her Adrián is [phone]. Its been reviewed and appropriate. Review of Systems: General: No recent weight changes, no fever, no sleep disturbances Respiratory: No cough, no shortness of air, no recurring pulmonary infections Cardiovascular/peripheral vascular: No chest pain, no palpitations, no edema, no shortness of breath Gastrointestinal: No new onset incontinence, normal bowel movements reported Genitourinary: No new onset incontinence Musculoskeletal: Low back pain, left hip pain Psychiatric: [Normal mood/affect] Neurological: [Denies weakness in extremities], [denies balance issues] Objective:: Physical Exam: General: Alert and oriented x3, no acute distress, pleasant and cooperative Lungs: Respirations even and unlabored, symmetrical chest expansion Eyes: PERRL Musculoskeletal: Flexion and extension of lumbar [spine] somewhat guarded secondary to pain, [antalgic gait noted] extreme point tenderness along left greater trochanteric bursa Neurological: Speech clear, no gross sensory deficit Assessment:: Degenerative disc disease of thoracic and lumbar spine with lumbar radiculopathy symptoms, left greater trochanteric bursitis, mid back pain, low back pain Plan:: Patient is experiencing significant pain in her left hip with limited range of motion. Patient did have extreme point tenderness at her left greater trochanteric bursa during our exam. I have discussed with the patient that she may benefit from left greater trochanteric bursa injection. Risk and benefits were discussed with the patient and she would like to proceed forward with this plan of care. I will also order physical therapy. She does states she would like to do this at [facility]. We will schedule her for a left greater trochanteric bursa injection. Patient has been instructed to contact the clinic with any concerns before the next appointment. Dr. May has reviewed this note and agrees with this plan of care. This note was dictated using voice recognition software and make contain errors or omissions. [facility] Disclaimer: The information contained in this section may have been updated after the patient was seen, as this information can be updated by other users. Medical History (Updated 03/01/23 @ 10:56 by Arlette Dos Santos RN) Abnormal electrocardiogram [ECG] [EKG] Allergies Bilateral cataracts Degenerative disc disease, lumbar GERD (gastroesophageal reflux disease) History of left heart catheterization (LHC) HLD (hyperlipidemia) HTN (hypertension) Osteoarthritis Palpit
[2023-03-08 11:31] VITALS: BP 152/72; PULSE 65; RESP 18; O2SAT 97; BMI 31.8
== END ==
PROVIDERS: Visit Provider Nurse Practitioner Family
DX: M51.16 Intervertebral disc disorders with radiculopathy, lumbar region (principal); M51.34 Other intervertebral disc degeneration, thoracic region; M70.62 Trochanteric bursitis, left hip
CPT/HCPCS: 99212; G0463

== ENCOUNTER 2023-03-20 13:16 | Day surgery (SDC) | payer MEDICARE, OTHER, SELFPAY ==
[2023-03-20 13:40] VITALS: BP 120/81; PULSE 52; RESP 18; TEMP 36.2; O2SAT 98; BMI 31.7
[2023-03-20 13:56] VITALS: BP 138/69; PULSE 55; RESP 18; O2SAT 98
--- NOTE | 2023-03-20 14:44 | P.PCN_ITS ---
Procedure Date: 03/20/23 Time: 14:00 Anesthesiologist:: Morris Berger CRNA Complications:: None Pre-procedure Diagnosis:: Left greater trochanteric bursitis. Post-procedure Diagnosis:: Same. Indications for Procedure:: Very pleasant 72-year-old female comes our clinic today for left greater trochanteric bursa injection. She has extreme point tenderness over the left lateral hip area. Difficulty walking. Difficulty laying on her left side. She rates her pain 8/10. Procedure Details:: We then moved to the left trochanteric bursa.~ C-arm fluoroscopy was used to view the left greater trochanter.~ The skin and subcutaneous tissues overlying the left greater trochanter were anesthetized using lidocaine, 1.5% and a 25- gauge needle.~ After this, a 22-gauge spinal needle was inserted and advanced until it contacted the left greater trochanter.~ Dye was injected and good spread was seen throughout the left trochanteric bursa. After this, approximately 5 mL of bupivacaine, 0.25% and Depo-Medrol, 40 mg was incrementally injected into the left trochanteric bursa.~ The patient tolerated the procedure well with no complications. Plan and Disposition:: Patient was discharged without incident
== END 2023-03-20 13:56 | disposition home or self-care (01) ==
LOC: SC.PAINP 13:17
PROVIDERS: PCP Internal Medicine; Visit Provider Nurse Anesthetist, Certified Registered
DX: M70.62 Trochanteric bursitis, left hip (principal); M51.16 Intervertebral disc disorders with radiculopathy, lumbar region; M51.34 Other intervertebral disc degeneration, thoracic region
CPT/HCPCS: 20610; 77002; J1040

== ENCOUNTER → 2023-03-26 06:46 | Outpatient (CLI) | payer MEDICARE, OTHER, SELFPAY | PROVIDERS: PCP Internal Medicine; Referring Provider Physician Assistant; Visit Provider Physician Assistant | DX: E78.5 Hyperlipidemia, unspecified (principal); I10 Essential (primary) hypertension; I48.0 Paroxysmal atrial fibrillation; R00.2 Palpitations; R94.31 Abnormal electrocardiogram [ECG] [EKG] | CPT/HCPCS: 78452; 93017; A9502; J2785 ==

== ENCOUNTER → 2023-04-03 11:48 | Outpatient (CLI) | payer MEDICARE, OTHER, SELFPAY ==
[2023-04-03 12:19] LABS: Basophils % 0.3 % (0.1-2.0); Eosinophils # 0.2 K/mm3 (0.0-0.4); Eosinophils % 2.2 % (0.1-12.0); Hematocrit 45.8 % (37.0-47.0); Hemoglobin 14.9 g/dL (12.2-16.2); Lymphocytes # 3.8 K/mm3 (0.7-4.5); Lymphocytes % 35.4 % (10-50); Mean Corpuscular HGB Conc 32.6 g/dL (31.8-35.4); Mean Corpuscular Hemoglobin 31.1 pg (27.0-31.2); Mean Corpuscular Volume 95.2 fl (81-99); Mean Platelet Volume 8.2 fl (7.4-10.4); Monocytes # 0.4 K/mm3 (0.1-1.0); Monocytes % 3.7 % (1.7-9.3); Neutrophils # 6.3 K/mm3 (1.8-7.8); Neutrophils % 58.5 % (37.0-80.0); Platelet Count 348 K/mm3 (142-424); Red Blood Count 4.81 M/mm3 (4.20-5.40); Red Cell Distribution Width 13.6 % (11.5-17.5); White Blood Count 10.8 K/mm3 (4.8-10.8)
[2023-04-03 12:50] LABS: Alanine Aminotransferase 31 U/L (12-78); Albumin Level 4.1 g/dl (3.5-5.0); Alkaline Phosphatase 73 U/L (38-126); Anion Gap 13.8 mEq/L (5-15); Aspartate Amino Transferase 30 U/L (14-36); Bilirubin,Indirect 0.5 mg/dL (0.0-0.9); Bilirubin,Total 0.5 mg/dl (0.2-1.3); Bilirubin,Unconjugated 0.6 mg/dL (0.0-1.1); Blood Urea Nitrogen 22 mg/dl (7-17); Calcium 9.6 mg/dl (8.4-10.2); Carbon Dioxide 31 mmol/L (22.0-30.0); Chloride 97 mmol/L (98-107); Chol/HDL Ratio 3.7 (1-3.5); Cholesterol 265 mg/dl (140-200); Estimated Glomerular Filt Rate 82 ml/min (>60); GFR (African American) 99 ML/MIN (>60); Glucose 96 mg/dl (74-100); HDL Cholesterol 72 mg/dl (40-60); Magnesium 1.9 mg/dl (1.6-2.3); Potassium 3.8 mmoL/L (3.5-5.1); Sodium 138 mmol/L (136-145); Total Protein,Serum 6.7 g/dl (6.3-8.2); Triglycerides 221 mg/dl (30-150); VLDL Cholesterol 44 mg/dL (0-40)
[2023-04-03 13:01] LABS: Direct LDL Cholesterol 146.99 mg/dL (100-129)
[2023-04-03 13:05] LABS: Free T4 (Free Thyroxine) 0.85 ng/dl (0.78-2.19)
[2023-04-03 13:23] LABS: Thyroid Stimulating Hormone 1.78 uIU/mL (0.465-4.68)
== END ==
PROVIDERS: PCP Internal Medicine; Visit Provider Internal Medicine
DX: I48.0 Paroxysmal atrial fibrillation (principal); R00.2 Palpitations; R06.09 Other forms of dyspnea; R94.39 Abnormal result of other cardiovascular function study; I10 Essential (primary) hypertension
CPT/HCPCS: 36415; 80048; 80061; 80076; 83735; 84439; 84443; 85025

== ENCOUNTER 2023-04-06 07:42 | Outpatient (CLI) | payer MEDICARE, OTHER, SELFPAY ==
[2023-04-06 08:00] VITALS: BP 137/61; PULSE 58; RESP 17; TEMP 36.2; O2SAT 97
[2023-04-06 08:30] VITALS: BP 132/83; PULSE 56; RESP 16; O2SAT 96
== END 2023-04-06 08:50 | disposition home or self-care (01) ==
LOC: RAD 07:42
PROVIDERS: PCP Internal Medicine; Visit Provider Physician Assistant
DX: E78.5 Hyperlipidemia, unspecified (principal); I10 Essential (primary) hypertension; I48.0 Paroxysmal atrial fibrillation; R00.2 Palpitations; R06.09 Other forms of dyspnea; R94.31 Abnormal electrocardiogram [ECG] [EKG]; R94.39 Abnormal result of other cardiovascular function study
CPT/HCPCS: 75574; Q9967

== ENCOUNTER 2023-04-09 07:27 | Day surgery (SDC) | payer MEDICARE, OTHER, SELFPAY ==
[2023-04-09 08:12] VITALS: BMI 31.0
[2023-04-09 08:26] VITALS: BP 139/75; PULSE 56; RESP 16; TEMP 36.9; O2SAT 95
[2023-04-09 08:31] VITALS: PULSE 57
[2023-04-09 08:53] VITALS: BP 133/97; PULSE 55; PULSE 56; RESP 16; O2SAT 98
[2023-04-09 08:57] VITALS: BP 136/94; PULSE 56; RESP 16; O2SAT 96
--- NOTE | 2023-04-09 09:25 | P.PCN_ITS ---
[facility] Loop Recorder Date: 04/09/23 Time: 09:00 Procedure Performed:: Implantation of loop recorder Indication:: Atrial fibrillation Technique:: Patient was brought to the cardiac Chandelier Maker. After informed consent obtained, 1% lidocaine with epinephrine was used to anesthetize the site along the left anterior aspect of the chest near the sternal border. Using the preformed scalpel, an incision was made and using the supplied preloaded apparatus, the loop recorder was placed subcutaneously without difficulty. Following the deployment of the loop recorder interrogation of the device was performed to ensure appropriate voltage was being detected. Once this was verified, Steri- Strips were placed over the incision and the patient was prepped to discharge home. Patient tolerated the procedure well with minimal discomfort. Impression:: Successful implantation of loop recorder. Serial Number:: [employer] ICM [id number] Serial #[id number] Plan:: Routine postop care.
== END 2023-04-09 09:51 | disposition home or self-care (01) ==
PROVIDERS: PCP Internal Medicine; Visit Provider Internal Medicine
DX: R94.39 Abnormal result of other cardiovascular function study (principal); I48.0 Paroxysmal atrial fibrillation; Z79.01 Long term (current) use of anticoagulants; Z79.899 Other long term (current) drug therapy
CPT/HCPCS: 33285; C1764

== ENCOUNTER 2023-05-01 08:24 | Day surgery (SDC) | payer MEDICARE, OTHER, SELFPAY ==
[2023-05-01] VITALS (10 sets, daily range): BP systolic 100–136; BP diastolic 51–69; PULSE 51–64; RESP 15–20; O2SAT 90–97; BMI 31.2
--- NOTE | 2023-05-01 07:05 | IR_ITS ---
APPROVED REPORT Patient Location: Outpatient PROCEDURES Left heart catheterization Left ventriculogram Selective coronary angiogram INDICATION Angina pectoris, Abnormal Myoview, Informed consent was obtained prior to the procedure. COMPLICATIONS None Estimated Blood Loss: Less than 10 mls TECHNIQUE One percent lidocaine used to anesthetize the right anterior aspect of the wrist. The right radial artery was accessed via the Seldinger technique. A 6 Yoruba sheath was placed in the right radial artery. 150 mg magnesium sulfate, 800 mcg of nitroglycerin, 1mg Lidocaine and 5000 U Heparin were given through the arterial sheath. The papa catheter was also used to perform left heart catheterization, left ventriculogram and selective coronary angiogram. At the end of the procedure the sheath was removed good hemostasis was achieved using Traclet band, patient was transferred to the postop holding area in stable condition. ANGIOGRAPHIC RESULTS The left main artery Normal The left anterior descending artery Proximal to mid vessel 10 to 20% stenosis The circumflex artery Mild 10% luminal irregularities The right coronary artery Dominant normal The KRAMER ventriculogram reveals Normal 65% The left ventricular end-diastolic pressure 20 to 25 mmHg IMPRESSION Mild nonflow limiting coronary disease Normal ejection fraction Elevated LVEDP consistent with diastolic dysfunction PLAN 1. Medical management for coronary disease 2. Treatment of diastolic dysfunction Electronically signed by : Oneal Hager MD 05/01/2023 12:50:33
[2023-05-01 09:18] LABS: Basophils % 0.5 % (0.1-2.0); Eosinophils # 0.2 K/mm3 (0.0-0.4); Eosinophils % 2.9 % (0.1-12.0); Hematocrit 42.2 % (37.0-47.0); Hemoglobin 13.6 g/dL (12.2-16.2); Lymphocytes # 2.8 K/mm3 (0.7-4.5); Lymphocytes % 38.4 % (10-50); Mean Corpuscular HGB Conc 32.3 g/dL (31.8-35.4); Mean Corpuscular Hemoglobin 30.4 pg (27.0-31.2); Mean Corpuscular Volume 94.2 fl (81-99); Mean Platelet Volume 7.8 fl (7.4-10.4); Monocytes # 0.4 K/mm3 (0.1-1.0); Monocytes % 5.3 % (1.7-9.3); Neutrophils # 3.8 K/mm3 (1.8-7.8); Neutrophils % 52.9 % (37.0-80.0); Platelet Count 299 K/mm3 (142-424); Red Blood Count 4.48 M/mm3 (4.20-5.40); Red Cell Distribution Width 13.7 % (11.5-17.5); White Blood Count 7.2 K/mm3 (4.8-10.8)
[2023-05-01 09:22] LABS: Chloride 100 mmol/L (98-107); Potassium 4.2 mmoL/L (3.5-5.1); Sodium 141 mmol/L (136-145)
[2023-05-01 09:25] LABS: Blood Urea Nitrogen 26 mg/dl (7-17); Creatinine Clearance Estimated 65 mL/min (50-200); Estimated Glomerular Filt Rate 70 ml/min (>60); GFR (African American) 85 ML/MIN (>60)
[2023-05-01 09:26] LABS: Anion Gap 13.2 mEq/L (5-15); Calcium 9.7 mg/dl (8.4-10.2); Carbon Dioxide 32 mmol/L (22.0-30.0); Glucose 95 mg/dl (74-100)
== END 2023-05-01 13:40 | disposition home or self-care (01) ==
PROVIDERS: PCP Internal Medicine Cardiovascular Disease; Visit Provider Internal Medicine
DX: E78.5 Hyperlipidemia, unspecified (principal); I10 Essential (primary) hypertension; I25.118 Atherosclerotic heart disease of native coronary artery with other forms of angina pectoris; I48.0 Paroxysmal atrial fibrillation; R06.09 Other forms of dyspnea; R94.31 Abnormal electrocardiogram [ECG] [EKG]; R94.39 Abnormal result of other cardiovascular function study; Z79.899 Other long term (current) drug therapy; Z79.01 Long term (current) use of anticoagulants
CPT/HCPCS: 80048; 85025; 93458; 99152; C1725; C1769; J1644; Q9967

== ENCOUNTER → 2023-06-06 10:34 | Outpatient (POV) | payer MEDICARE, OTHER, SELFPAY ==
--- NOTE | 2023-06-06 11:00 | EXP.PAIN.SOA ---
[facility] Pain Management SOAP Note Subjective:: Patient is a pleasant 73-year-old female who presents today for follow-up. We are currently treating the patient for degenerative disc disease of thoracic and lumbar spine with thoracic and lumbar radiculopathy symptoms, mid back pain, low back pain, left greater trochanteric bursitis. Today she rates her pain a 5 out of 10. Patient denies any new trauma or injury. She denies any change location or type of pain she experiences. Patient does states she is still continuing to have some mid back pain along with her left bursa pain however it is still very manageable at this point. She does describe this as an aching, throbbing sensation that is tolerable. She states she generally is more active in the fall and typically would like to wait a little bit longer before trying to do an injection. She is prescribed compounding cream that she states she has not tried recently on these pain areas. Patient does state that she has had a lot going on and was diagnosed with A-fib earlier this year and does have a loop recorder in place. She does state that they did take her off her blood thinners. She does also have sleep apnea. Patient is not on any scheduled medications. Her Adrián is [phone]. Its been reviewed and appropriate. Review of Systems: General: No recent weight changes, no fever, no sleep disturbances Respiratory: No cough, no shortness of air, no recurring pulmonary infections Cardiovascular/peripheral vascular: No chest pain, no palpitations, no edema, no shortness of breath Gastrointestinal: No new onset incontinence, normal bowel movements reported Genitourinary: No new onset incontinence Musculoskeletal: Mid back pain, left bursa pain Psychiatric: [Normal mood/affect] Neurological: [Denies weakness in extremities], [denies balance issues] Objective:: Physical Exam: General: Alert and oriented x3, no acute distress, pleasant and cooperative Lungs: Respirations even and unlabored, symmetrical chest expansion Eyes: PERRL Musculoskeletal: Flexion and extension of thoracic [spine] somewhat guarded secondary to pain, [antalgic gait noted] point tenderness noted at left bursa Neurological: Speech clear, no gross sensory deficit Assessment:: Degenerative disc disease of thoracic and lumbar spine with thoracic and lumbar radiculopathy symptoms, left greater trochanteric bursitis Plan:: Patient continues to have pain at her mid back and left bursa however at this time she would like to wait on injective therapy. I have counseled the patient to use her compounding cream in these locations. Patient will return to clinic in 2 months for reevaluation of symptoms and plan of care. Patient has been instructed to contact the clinic with any concerns before the next appointment. Dr. May has reviewed this note and agrees with this plan of care. This note was dictated using voice recognition software and make contain errors or omissions. [facility] Disclaimer: The information contained in this section may have been updated after the patient was seen, as this information can be updated by other users. Medical History Abnormal electrocardiogram [ECG] [EKG] Allergies Bilateral cataracts Degenerative disc disease, lumbar GERD (gastroesophageal reflux disease) History of left heart catheterization (LHC) HLD (hyperlipidemia) HTN (hypertension) Osteoarthritis Palpitations Paroxysmal A-fib Surgical History H/O arthroscopy of right knee H/O repair of left rotator cuff H/O tubal ligation History of cholecystectomy History of total abdominal hysterectomy Family History Other Family history of atrial fibrillation Family history of hyperlipidemia Family history of hypertension No significant family history Social History (Reviewed 05/15/23 @ 12:08 by Sari
[2023-06-06 11:21] VITALS: BP 120/54; PULSE 56; RESP 18; O2SAT 94; BMI 31.7
== END ==
PROVIDERS: PCP Internal Medicine; Visit Provider Nurse Practitioner Family
DX: M51.14 Intervertebral disc disorders with radiculopathy, thoracic region (principal); M51.16 Intervertebral disc disorders with radiculopathy, lumbar region; M70.62 Trochanteric bursitis, left hip
CPT/HCPCS: 99212; G0463

== ENCOUNTER → 2023-08-13 11:05 | Outpatient (POV) | payer MEDICARE, OTHER, SELFPAY ==
--- NOTE | 2023-08-13 11:38 | EXP.PAIN.SOA ---
[facility] Pain Management SOAP Note Subjective:: Patient is a pleasant 73-year-old female who presents today for follow-up. We are currently treating the patient for degenerative disc disease of thoracic and lumbar spine with thoracic and lumbar radiculopathy symptoms, mid back pain, low back pain, left greater trochanteric bursitis. Today she rates her pain a 2 out of 10. Patient denies any new trauma or injury. She does state that she feels like she is doing exceptionally well. She states that she does continue to have some hip pain however it is very manageable and tolerable at this point. Patient does state that she is starting to increase her activity more and that she has been ordered new physical therapy. Patient does have sleep apnea and A-fib. Patient does state that she has had significant improvement as well from her Tempur-Pedic mattress and that she is a side sleeper and that previously she could not even lay on her left side however that it has improved. She states she can lay on her left side however she does frequently have to change positions after a certain period of time. Her Adrián is [phone]. Its been reviewed and appropriate. Review of Systems: General: No recent weight changes, no fever, no sleep disturbances Respiratory: No cough, no shortness of air, no recurring pulmonary infections Cardiovascular/peripheral vascular: No chest pain, no palpitations, no edema, no shortness of breath Gastrointestinal: No new onset incontinence, normal bowel movements reported Genitourinary: No new onset incontinence Musculoskeletal: Hip pain Psychiatric: [Normal mood/affect] Neurological: [Denies weakness in extremities], [denies balance issues] Objective:: Physical Exam: General: Alert and oriented x3, no acute distress, pleasant and cooperative Lungs: Respirations even and unlabored, symmetrical chest expansion Eyes: PERRL Musculoskeletal: Flexion and extension of lumbar [spine] somewhat guarded secondary to pain, [antalgic gait noted] Neurological: Speech clear, no gross sensory deficit Assessment:: Degenerative disc disease of thoracic and lumbar spine with thoracic and lumbar radiculopathy symptoms, mid back pain, low back pain, left greater trochanteric bursitis Plan:: Patient continues to do well following her left bursa injection and does not require any additional injective therapy at this time. I have counseled the patient that she may experience flareups of this pain however we will be able to do additional injections as needed. I have counseled the patient that I highly recommend increasing her activity to help with overall stiffness. Patient will follow-up in clinic in 4 months for reevaluation of symptoms and plan of care. I have counseled the patient that if her pain starts flaring up between now and then she can call and get in sooner for evaluation and plan of care. Patient has been instructed to contact the clinic with any concerns before the next appointment. Dr. May has reviewed this note and agrees with this plan of care. This note was dictated using voice recognition software and make contain errors or omissions. [facility] Disclaimer: The information contained in this section may have been updated after the patient was seen, as this information can be updated by other users. Medical History Abnormal electrocardiogram [ECG] [EKG] Allergies Bilateral cataracts Degenerative disc disease, lumbar GERD (gastroesophageal reflux disease) History of left heart catheterization (LHC) HLD (hyperlipidemia) HTN (hypertension) Osteoarthritis Palpitations Paroxysmal A-fib Surgical History H/O arthroscopy of right knee H/O repair of left rotator cuff H/O tubal ligation History of cholecystectomy History of total abdominal hysterectomy Family History Other
[2023-08-13 12:14] VITALS: BP 142/76; PULSE 57; RESP 18; O2SAT 95; BMI 31.8
== END ==
PROVIDERS: PCP Internal Medicine; Visit Provider Nurse Practitioner Family
DX: M51.14 Intervertebral disc disorders with radiculopathy, thoracic region (principal); M51.16 Intervertebral disc disorders with radiculopathy, lumbar region; M70.62 Trochanteric bursitis, left hip
CPT/HCPCS: 99212; G0463

== ENCOUNTER → 2023-08-13 11:52 | Outpatient (CLI) | payer MEDICARE, OTHER, SELFPAY ==
[2023-08-13 13:21] LABS: Bilirubin,Unconjugated 0.2 mg/dL (0.0-1.1)
[2023-08-13 13:22] LABS: Alanine Aminotransferase 39 U/L (12-78); Alkaline Phosphatase 67 U/L (38-126); Aspartate Amino Transferase 40 U/L (14-36); Bilirubin,Direct 0.5 mg/dl (0.0-0.4); Bilirubin,Indirect 0.1 mg/dL (0.0-0.9); Bilirubin,Total 0.6 mg/dl (0.2-1.3); Chol/HDL Ratio 3.9 (1-3.5); Cholesterol 193 mg/dl (140-200); HDL Cholesterol 50 mg/dl (40-60); Total Protein,Serum 6.4 g/dl (6.3-8.2); Triglycerides 213 mg/dl (30-150); VLDL Cholesterol 43 mg/dL (0-40)
[2023-08-13 13:33] LABS: Direct LDL Cholesterol 96.79 mg/dL (100-129)
== END ==
PROVIDERS: PCP Internal Medicine; Visit Provider Internal Medicine
DX: I10 Essential (primary) hypertension (principal); R06.09 Other forms of dyspnea; G47.33 Obstructive sleep apnea (adult) (pediatric); G47.34 Idiopathic sleep related nonobstructive alveolar hypoventilation; R06.83 Snoring; E78.5 Hyperlipidemia, unspecified
CPT/HCPCS: 36415; 80061; 80076; 99212; G0399; G0463

== ENCOUNTER → 2023-08-28 12:42 | Outpatient (CLI) | payer MEDICARE, OTHER, SELFPAY ==
[2023-08-28 15:18] LABS: Chloride 103 mmol/L (98-107); Potassium 4.6 mmoL/L (3.5-5.1); Sodium 142 mmol/L (136-145)
[2023-08-28 15:19] LABS: Alanine Aminotransferase 32 U/L (12-78); Albumin Level 4.3 g/dl (3.5-5.0); Albumin/Globulin Ratio 1.7 (1.1-1.8); Alkaline Phosphatase 65 U/L (38-126); Anion Gap 14.6 mEq/L (5-15); Aspartate Amino Transferase 38 U/L (14-36); Bilirubin,Total 0.5 mg/dl (0.2-1.3); Blood Urea Nitrogen 18 mg/dl (7-17); Calcium 9.7 mg/dl (8.4-10.2); Carbon Dioxide 29 mmol/L (22.0-30.0); Chol/HDL Ratio 3.6 (1-3.5); Cholesterol 170 mg/dl (140-200); Estimated Glomerular Filt Rate 82 ml/min (>60); GFR (African American) 99 ML/MIN (>60); Globulin 2.6 g/dL (1.3-3.2); Glucose 97 mg/dl (74-100); HDL Cholesterol 47 mg/dl (40-60); Total Protein,Serum 6.9 g/dl (6.3-8.2); Triglycerides 183 mg/dl (30-150); VLDL Cholesterol 37 mg/dL (0-40)
[2023-08-28 15:30] LABS: Direct LDL Cholesterol 91.07 mg/dL (100-129)
== END ==
PROVIDERS: PCP Internal Medicine; Visit Provider Internal Medicine
DX: I10 Essential (primary) hypertension (principal); E78.5 Hyperlipidemia, unspecified
CPT/HCPCS: 80053; 80061

== ENCOUNTER → 2024-02-05 14:51 | Outpatient (CLI) | payer MEDICARE, OTHER, SELFPAY | PROVIDERS: PCP Internal Medicine; Visit Provider Nurse Practitioner Family | DX: G47.33 Obstructive sleep apnea (adult) (pediatric) (principal); G47.36 Sleep related hypoventilation in conditions classified elsewhere; I48.0 Paroxysmal atrial fibrillation; I10 Essential (primary) hypertension | CPT/HCPCS: G0399 ==

== ENCOUNTER 2024-02-27 10:29 | Outpatient (CLI) | payer MEDICARE, OTHER, SELFPAY ==
[2024-02-27 11:18] LABS: Basophils # 0.1 K/mm3 (0-0.2); Basophils % 1.1 % (0.1-2.0); Eosinophils # 0.3 K/mm3 (0.0-0.4); Eosinophils % 4.5 % (0.1-12.0); Hematocrit 43.1 % (37.0-47.0); Hemoglobin 14.2 g/dL (12.2-16.2); Lymphocytes # 2.4 K/mm3 (0.7-4.5); Lymphocytes % 40.8 % (10-50); Mean Corpuscular HGB Conc 32.9 g/dL (31.8-35.4); Mean Corpuscular Hemoglobin 31.8 pg (27.0-31.2); Mean Corpuscular Volume 96.6 fl (81-99); Mean Platelet Volume 8.7 fl (7.4-10.4); Monocytes # 0.3 K/mm3 (0.1-1.0); Monocytes % 5.1 % (1.7-9.3); Neutrophils # 2.8 K/mm3 (1.8-7.8); Neutrophils % 48.5 % (37.0-80.0); Platelet Count 297 K/mm3 (142-424); Red Blood Count 4.47 M/mm3 (4.20-5.40); Red Cell Distribution Width 13.8 % (11.5-17.5); White Blood Count 5.8 K/mm3 (4.8-10.8)
[2024-02-27 12:25] LABS: Alanine Aminotransferase 32 U/L (12-78); Albumin Level 4.1 g/dl (3.5-5.0); Albumin/Globulin Ratio 1.9 (1.1-1.8); Alkaline Phosphatase 69 U/L (38-126); Anion Gap 9.5 mEq/L (5-15); Aspartate Amino Transferase 39 U/L (14-36); Bilirubin,Total 0.6 mg/dl (0.2-1.3); Blood Urea Nitrogen 24 mg/dl (7-17); Carbon Dioxide 28 mmol/L (22.0-30.0); Chloride 107 mmol/L (98-107); Chol/HDL Ratio 5.2 (1-3.5); Cholesterol 187 mg/dl (140-200); Estimated Glomerular Filt Rate 61 ml/min (>60); GFR (African American) 74 ML/MIN (>60); Globulin 2.2 g/dL (1.3-3.2); Glucose 100 mg/dl (74-100); HDL Cholesterol 36 mg/dl (40-60); Potassium 4.5 mmoL/L (3.5-5.1); Sodium 140 mmol/L (136-145); Total Protein,Serum 6.3 g/dl (6.3-8.2); Triglycerides 256 mg/dl (30-150); VLDL Cholesterol 51 mg/dL (0-40)
[2024-02-27 12:35] LABS: Direct LDL Cholesterol 89.23 mg/dL (100-129)
== END 2024-02-27 23:59 ==
LOC: LAB.DROPOF 10:30
PROVIDERS: PCP Internal Medicine; Visit Provider Internal Medicine
DX: I10 Essential (primary) hypertension (principal); E78.5 Hyperlipidemia, unspecified; M47.816 Spondylosis without myelopathy or radiculopathy, lumbar region; I48.0 Paroxysmal atrial fibrillation; N95.1 Menopausal and female climacteric states; N32.81 Overactive bladder
CPT/HCPCS: 80053; 80061; 85025

== ENCOUNTER 2024-03-12 10:59 | Outpatient (CLI) | payer MEDICARE, OTHER, SELFPAY | END 2024-03-12 23:59 | LOC: RT 11:00 | PROVIDERS: PCP Internal Medicine; Visit Provider Specialist | DX: G47.33 Obstructive sleep apnea (adult) (pediatric) (principal) | CPT/HCPCS: 94762 ==

== ENCOUNTER 2024-06-26 09:05 | Outpatient (POV) | payer MEDICARE, OTHER, SELFPAY ==
--- NOTE | 2024-06-26 09:17 | A.OFFVIS_ITS ---
[facility] Disclaimer: The information contained in this section may have been updated after the patient was seen, as this information can be updated by other users. Medical History Abnormal cardiovascular stress test Abnormal electrocardiogram [ECG] [EKG] Palpitations Paroxysmal A-fib Allergies GERD (gastroesophageal reflux disease) Bilateral cataracts History of left heart catheterization (LHC) Degenerative disc disease, lumbar Osteoarthritis HLD (hyperlipidemia) HTN (hypertension) Surgical History H/O repair of left rotator cuff History of cholecystectomy H/O arthroscopy of right knee History of total abdominal hysterectomy H/O tubal ligation Family History Other Family history of atrial fibrillation Family history of hyperlipidemia Family history of hypertension No significant family history Social History Smoking Status: Never smoker alcohol intake: never current occupational status: retired Travel in the last 8 weeks: None PM Subjective & Objective Subjective Subjective:: Patient is a pleasant 73-year-old female who presents today for follow-up. We are currently treating the patient for degenerative disc disease of thoracic and lumbar spine with thoracic and lumbar radiculopathy symptoms, mid back pain, low back pain, left greater trochanteric bursitis. Today she rates her pain a 5 out of 10. Patient denies any new trauma or injury. She does state that she has started to experience more pain in her mid back that does radiate down. She describes it as an aching sensation with radiating symptoms. She does state the pain interferes with her ability perform activities of daily living such as cooking and cleaning. Patient does state that she has had an injection in the past that significantly improved this pain however she cannot remember which one it was. She does state that it is lasted longer than a year and really did not start bothering her until the last couple of months. Patient does have sleep apnea and A-fib. Her Adrián has been reviewed and appropriate. Review of Systems: General: No recent weight changes, no fever, no sleep disturbances Respiratory: No cough, no shortness of air, no recurring pulmonary infections Cardiovascular/peripheral vascular: No chest pain, no palpitations, no edema, no shortness of breath Gastrointestinal: No new onset incontinence, normal bowel movements reported Genitourinary: No new onset incontinence Musculoskeletal: Mid back pain, low back pain Psychiatric: [Normal mood/affect] Neurological: [Denies weakness in extremities], [denies balance issues] Pain at rest (0-10 scale): 5 Objective Objective:: Physical Exam: General: Alert and oriented x3, no acute distress, pleasant and cooperative Lungs: Respirations even and unlabored, symmetrical chest expansion Eyes: PERRL Musculoskeletal: Flexion and extension of thoracic [spine] somewhat guarded secondary to pain, [antalgic gait noted] Neurological: Speech clear, no gross sensory deficit Has patient had previous pain injection?: No Conservative treatment options previously tried: Home exercise plan Length of treatment: Longer than 6 weeks Meds Home Medications and Allergies Home Medications ?Medication ?Instructions ?Recorded ?Confirmed ?Type cetirizine 10 mg tablet 10 mg PO DAILY ALLERGIES 09/25/22 06/26/24 History cyclobenzaprine 5 mg tablet 5 mg PO TIDP PRN MUSCLE SPASMS 09/25/22 06/26/24 History acetaminophen 650 mg 650 mg PO Q12H PRN Pain 12/27/22 06/26/24 History tablet,extended release (Tylenol Arthritis Pain) multivitamin 1 tab PO DAILY SUPPLIMENT 12/27/22 06/26/24 History ascorbic acid (vitamin C) 1,000 mg 1 g PO DAILY SUPPLIMENT 03/01/23 06/26/24 History tablet curcumin-phosphatidylcholine 500 500 mg PO ONCE . 04/24/23 06/26/24 History mg capsule bisoprolol fumarate 5 mg tablet 5 mg PO QDAY BLOOD PRESSURE #90 08/31/23 06/26/24 Rx tabs losartan 100 mg tablet See Rx Instructions .Route 11/27/23 06/26/24 Rx .COMPLEX #90 tabs meloxicam 7.5 mg tablet 7.5 mg PO .COMPLEX Pain 03/04/24 06/26/24 History omeprazole 40 mg capsule,delayed 40 mg PO DAILY GERD #90 caps 05/09/24 06/26/24 Rx release paroxetine HCl 10 mg tablet 10 mg PO DAILY MOOD #90 tabs 05/28/24 06/26/24 Rx New Prescriptions to Start Prescriptions: Allergies Allergy/AdvReac Type Severity Reaction Status Date / Time lisinopril Allergy Mild Verified 04/30/24 14:53 [id number] Reductase Allergy Mild Verified 04/30/24 14:53 Inhibitor Sulfa (Sulfonamide Allergy Mild Verified 04/30/24 14:53 Antibiotics) Assessment and Plan *Assessment and plan (1) Degenerative disc disease, thoracic: Status: Acute Category: Medical Code(s): M51.34 - Other intervertebral disc degeneration, thoracic region (2) Thoracic radiculopathy: Status: Acute Category: Medical Code(s): M54.14 - Radiculopathy, thoracic region (3) Mid back pain: Status: Resolved Category: Medical Code(s): M54.9 - Dorsalgia, unspecified Plan Patient is experiencing more mid back pain with radiating symptoms down. Patient did have limited range of motion of her thoracic spine with point tenderness in her upper thoracic region during today's exam. Patient did previously have a thoracic epidural of T3-T4 back in September 29, 2022 that did provide 50 to 60% improvement and lasted up until the last 2 to 3 months. I did review over with the patient risk and benefits of repeating this injection and she would like to proceed forward with this plan of care. Patient is not on any blood thinners. Patient has tried and failed conservative therapy including oral Medications, heat and ice and topicals and continued at home stretching exercise for longer than 6 weeks. We will submit to insurance for repeat thoracic epidural T3-T4 under fluoroscopy. Patient has been instructed to contact the clinic with any concerns before the next appointment. Dr. May has reviewed this note and agrees with this plan of care. This note was dictated using voice recognition software and make contain errors or omissions. All injections are used with Lidocaine or Bupivacaine and Depo Medrol.
[2024-06-26 09:21] VITALS: BP 126/57; PULSE 67; RESP 16; O2SAT 97; BMI 32.5
== END 2024-06-26 23:59 | disposition home or self-care (01) ==
LOC: SC.PAIN 09:06
PROVIDERS: PCP Internal Medicine; Visit Provider Nurse Practitioner Family
DX: M54.9 Dorsalgia, unspecified; M51.14 Intervertebral disc disorders with radiculopathy, thoracic region; Z73.89 Other problems related to life management difficulty; Z79.899 Other long term (current) drug therapy
CPT/HCPCS: 99212; G0463

== ENCOUNTER 2024-07-08 11:02 | Day surgery (SDC) | payer MEDICARE, OTHER, SELFPAY ==
[2024-07-08 11:38] VITALS: BP 149/70; PULSE 74; RESP 16; TEMP 36.6; O2SAT 94; BMI 32.5
[2024-07-08] MEDS: IOPAMIDOL-200 (41%);10ML VIAL 10 ML IV (12:05)
[2024-07-08 12:10] VITALS: BP 155/72; PULSE 67; RESP 18; O2SAT 94
--- NOTE | 2024-07-08 12:17 | P.PCN_ITS ---
Procedure Date: 07/08/24 Time: 12:00 Anesthesiologist:: Morris Berger CRNA Complications:: None Pre-procedure Diagnosis:: Degenerative disc thoracic spine. Thoracic radiculopathy thoracic spondylosis. Multilevel thoracic facet arthropathy. Degenerative disc lumbar spine. Lumbar radiculopathy. Post-procedure Diagnosis:: Same. Indications for Procedure:: Patient is a very pleasant 74-year-old female who comes our clinic today for T4 epidural steroid injection. Patient reports pain between the shoulder blades that is constant, dull, aching. Patient also reporting some radicular symptoms around the bilateral thoracic cavity. Right greater than left. Patient had T4 epidural steroid injection in 2021 she reports significant improvement. Procedure Details:: Informed consent was obtained risk and benefits of the procedure were explained the patient. Patient was taken the procedure room. Mid back was prepped using ChloraPrep. The skin and subtenons tissues were anesthetized using lidocaine. A 17-gauge epidural needle was inserted and advanced into the T11-T12 interspace. After confirmation of needle placement in the epidural space a catheter was inserted and advanced to the T3-T4 interspace. There was good spread of dye throughout the thoracic epidural space. We then injected Depo- Medrol 80 mg plus saline 2 mL. Patient tolerated procedure well with no complications. Plan and Disposition:: Patient was discharged without incident.
[2024-07-08] MEDS: methylPREDNISolone ACETATE 80MG/ML VIAL 80 MG (13:44)
== END 2024-07-08 12:10 | disposition home or self-care (01) ==
PROVIDERS: PCP Internal Medicine; Visit Provider Nurse Anesthetist, Certified Registered
DX: M47.24 Other spondylosis with radiculopathy, thoracic region; M51.16 Intervertebral disc disorders with radiculopathy, lumbar region; M51.34 Other intervertebral disc degeneration, thoracic region
CPT/HCPCS: 62321; J1010; Q9966

== ENCOUNTER 2024-07-24 12:53 | Outpatient (POV) | payer MEDICARE, OTHER, SELFPAY ==
[2024-07-24 13:11] VITALS: BP 128/72; PULSE 64; RESP 16; O2SAT 95; BMI 32.4
--- NOTE | 2024-07-24 13:25 | EXP.PAIN.SOA ---
[facility] Disclaimer: The information contained in this section may have been updated after the patient was seen, as this information can be updated by other users. Medical History Abnormal cardiovascular stress test Abnormal electrocardiogram [ECG] [EKG] Palpitations Paroxysmal A-fib Allergies GERD (gastroesophageal reflux disease) Bilateral cataracts History of left heart catheterization (LHC) Degenerative disc disease, lumbar Osteoarthritis HLD (hyperlipidemia) HTN (hypertension) Surgical History H/O repair of left rotator cuff History of cholecystectomy H/O arthroscopy of right knee History of total abdominal hysterectomy H/O tubal ligation Family History Other Family history of atrial fibrillation Family history of hyperlipidemia Family history of hypertension No significant family history Social History Smoking Status: Never smoker alcohol intake: never current occupational status: unemployed Travel in the last 8 weeks: None PM Subjective & Objective Subjective Subjective:: Patient is a pleasant 74-year-old female who presents today for follow-up of thoracic epidural steroid injection T3-T4 on 07/08/2024. Today she rates her pain a 1 out of 10. Patient states she has had at least 70% improvement following this injection and feels like it is still working well. Patient denies any new trauma or injury. She does state overall she has so much more improved function. Patient states her biggest complaint now is her sleep apnea. Her Adrián has been reviewed and is appropriate. Review of Systems: General: No recent weight changes, no fever, no sleep disturbances Respiratory: No cough, no shortness of air, no recurring pulmonary infections Cardiovascular/peripheral vascular: No chest pain, no palpitations, no edema, no shortness of breath Gastrointestinal: No new onset incontinence, normal bowel movements reported Genitourinary: No new onset incontinence Musculoskeletal: Mid back pain Psychiatric: [Normal mood/affect] Neurological: [Denies weakness in extremities], [denies balance issues] Pain at rest (0-10 scale): 1 Objective Objective:: Physical Exam: General: Alert and oriented x3, no acute distress, pleasant and cooperative Lungs: Respirations even and unlabored, symmetrical chest expansion Eyes: PERRL Musculoskeletal: Flexion and extension of thoracic [spine] somewhat guarded secondary to pain, [antalgic gait noted] Neurological: Speech clear, no gross sensory deficit Has patient had previous pain injection?: Yes Percent improvement in pain since last injection: 70% Conservative treatment options previously tried: Home exercise plan Length of treatment: Longer than 6 weeks Meds Home Medications and Allergies Home Medications ?Medication ?Instructions ?Recorded ?Confirmed ?Type cetirizine 10 mg tablet 10 mg PO DAILY ALLERGIES 09/25/22 07/24/24 History cyclobenzaprine 5 mg tablet 5 mg PO TIDP PRN MUSCLE SPASMS 09/25/22 07/24/24 History acetaminophen 650 mg 650 mg PO Q12H PRN Pain 12/27/22 07/24/24 History tablet,extended release (Tylenol Arthritis Pain) multivitamin 1 tab PO DAILY SUPPLIMENT 12/27/22 07/24/24 History ascorbic acid (vitamin C) 1,000 mg 1 g PO DAILY SUPPLIMENT 03/01/23 07/24/24 History tablet curcumin-phosphatidylcholine 500 500 mg PO ONCE . 04/24/23 07/24/24 History mg capsule losartan 100 mg tablet See Rx Instructions .Route 11/27/23 07/24/24 Rx .COMPLEX #90 tabs meloxicam 7.5 mg tablet 7.5 mg PO .COMPLEX Pain 03/04/24 07/24/24 History omeprazole 40 mg capsule,delayed 40 mg PO DAILY GERD #90 caps 05/09/24 07/24/24 Rx release paroxetine HCl 10 mg tablet 10 mg PO DAILY MOOD #90 tabs 05/28/24 07/24/24 Rx bisoprolol fumarate 5 mg tablet 5 mg PO QDAY BLOOD PRESSURE #90 07/01/24 07/24/24 Rx tabs New Prescriptions to Start Prescriptions: Allergies Allergy/AdvReac Type Severity Reaction Status Date / Time lisinopril Allergy Mild Verified 07/08/24 11:40 [id number]-[id number] Reductase Allergy Mild Verified 07/08/24 11:40 Inhibitor Sulfa (Sulfonamide Allergy Mild Verified 07/08/24 11:40 Antibiotics) Assessment and Plan *Assessment and plan (1) Thoracic radiculopathy: Status: Acute Category: Medical Code(s): M54.14 - Radiculopathy, thoracic region Plan Patient has had significant improvement following her thoracic epidural and does not require any additional injection therapy. Patient did get longer than a year with her last epidural injection. Patient will return to clinic in 3 months for reevaluation of symptoms and plan of care. Patient has been instructed to contact the clinic with any concerns before the next appointment. Dr. May has reviewed this note and agrees with this plan of care. This note was dictated using voice recognition software and make contain errors or omissions. All injections are used with Lidocaine or Bupivacaine and Depo Medrol.
== END 2024-07-24 23:59 | disposition home or self-care (01) ==
LOC: SC.PAIN 12:54
PROVIDERS: PCP Internal Medicine; Visit Provider Nurse Practitioner Family
DX: M54.14 Radiculopathy, thoracic region (principal)
CPT/HCPCS: 99212; G0463

== ENCOUNTER 2024-09-09 08:59 | Outpatient (CLI) | payer MEDICARE, OTHER, SELFPAY ==
[2024-09-09 17:17] LABS: Albumin Level 4.4 g/dl (3.5-5.0); Chloride 106 mmol/L (98-107); Potassium 4.7 mmoL/L (3.5-5.1); Sodium 139 mmol/L (136-145)
[2024-09-09 17:20] LABS: Alanine Aminotransferase 50 U/L (12-78); Albumin/Globulin Ratio 1.8 (1.1-1.8); Alkaline Phosphatase 66 U/L (38-126); Anion Gap 13.7 mEq/L (5-15); Aspartate Amino Transferase 55 U/L (14-36); Bilirubin,Total 0.7 mg/dl (0.2-1.3); Blood Urea Nitrogen 24 mg/dl (7-17); Carbon Dioxide 24 mmol/L (22.0-30.0); Cholesterol 270 mg/dl (140-200); Estimated Glomerular Filt Rate 70 ml/min (>60); GFR (African American) 85 ML/MIN (>60); Globulin 2.5 g/dL (1.3-3.2); Total Protein,Serum 6.9 g/dl (6.3-8.2); Triglycerides 269 mg/dl (30-150); VLDL Cholesterol 54 mg/dL (0-40)
[2024-09-09 17:21] LABS: Calcium 10.1 mg/dl (8.4-10.2); Chol/HDL Ratio 6.1 (1-3.5); Glucose 95 mg/dl (74-100); HDL Cholesterol 44 mg/dl (40-60)
[2024-09-09 17:32] LABS: Direct LDL Cholesterol 156.95 mg/dL (100-129)
== END 2024-09-09 23:59 | disposition home or self-care (01) ==
LOC: LAB.DROPOF 09-10 08:59
PROVIDERS: PCP Internal Medicine; Visit Provider Internal Medicine
DX: E78.5 Hyperlipidemia, unspecified (principal); I10 Essential (primary) hypertension
CPT/HCPCS: 80053; 80061

== ENCOUNTER 2025-03-10 10:10 | Outpatient (CLI) | payer MEDICARE, OTHER, SELFPAY ==
[2025-03-10 17:44] LABS: Basophils % 0.5 % (0.1-2.0); Eosinophils # 0.2 K/mm3 (0.0-0.4); Eosinophils % 3.7 % (0.1-12.0); Hematocrit 44.5 % (37.0-47.0); Hemoglobin 14.8 g/dL (12.2-16.2); Lymphocytes # 2.4 K/mm3 (0.7-4.5); Mean Corpuscular HGB Conc 33.3 g/dL (31.8-35.4); Mean Corpuscular Hemoglobin 31.4 pg (27.0-31.2); Mean Corpuscular Volume 94.5 fl (81-99); Mean Platelet Volume 11.2 fl (7.4-10.4); Monocytes # 0.4 K/mm3 (0.1-1.0); Monocytes % 6.7 % (1.7-9.3); Neutrophils # 2.6 K/mm3 (1.8-7.8); Neutrophils % 45.9 % (37.0-80.0); Nucleated Red Blood Cells # 0 10^3/uL; Nucleated Red Blood Cells % 0 %; Platelet Count 272 K/mm3 (142-424); Red Blood Count 4.71 M/mm3 (4.20-5.40); Red Cell Distribution Width 13.6 % (11.5-17.5); Red Cell Distribution Width-SD 47.5 fL; White Blood Count 5.7 K/mm3 (4.8-10.8)
[2025-03-10 19:18] LABS: Alanine Aminotransferase 59 U/L (12-78); Albumin Level 4.1 g/dl (3.5-5.0); Albumin/Globulin Ratio 1.5 (1.1-1.8); Alkaline Phosphatase 92 U/L (38-126); Anion Gap 13.9 mEq/L (5-15); Aspartate Amino Transferase 50 U/L (14-36); Bilirubin,Total 0.6 mg/dl (0.2-1.3); Blood Urea Nitrogen 23 mg/dl (7-17); Calcium 9.4 mg/dl (8.4-10.2); Carbon Dioxide 27 mmol/L (22.0-30.0); Chloride 102 mmol/L (98-107); Chol/HDL Ratio 4.7 (1-3.5); Cholesterol 202 mg/dl (140-200); Estimated Glomerular Filt Rate 82 ml/min (>60); GFR (African American) 99 ML/MIN (>60); Globulin 2.7 g/dL (1.3-3.2); Glucose 86 mg/dl (74-100); HDL Cholesterol 43 mg/dl (40-60); Potassium 4.9 mmoL/L (3.5-5.1); Sodium 138 mmol/L (136-145); Total Protein,Serum 6.8 g/dl (6.3-8.2); Triglycerides 205 mg/dl (30-150); VLDL Cholesterol 41 mg/dL (0-40)
[2025-03-10 19:29] LABS: Direct LDL Cholesterol 110.03 mg/dL (100-129)
== END 2025-03-10 23:59 | disposition home or self-care (01) ==
LOC: LAB.DROPOF 03-11 11:03
PROVIDERS: PCP Internal Medicine; Visit Provider Internal Medicine
DX: E78.5 Hyperlipidemia, unspecified (principal); I10 Essential (primary) hypertension; I48.0 Paroxysmal atrial fibrillation
CPT/HCPCS: 80053; 80061; 85025

== ENCOUNTER 2025-09-08 10:15 | Outpatient (CLI) | payer MEDICARE, OTHER, SELFPAY ==
[2025-09-08 18:34] LABS: Alanine Aminotransferase 40 U/L (12-78); Albumin Level 4.3 g/dl (3.5-5.0); Albumin/Globulin Ratio 1.8 (1.1-1.8); Alkaline Phosphatase 100 U/L (38-126); Anion Gap 15.8 mEq/L (5-15); Aspartate Amino Transferase 43 U/L (14-36); Bilirubin,Total 0.9 mg/dl (0.2-1.3); Blood Urea Nitrogen 20 mg/dl (7-17); Calcium 10.1 mg/dl (8.4-10.2); Carbon Dioxide 29 mmol/L (22.0-30.0); Chloride 98 mmol/L (98-107); Cholesterol 217 mg/dl (140-200); Creatinine,Serum 1.00 mg/dl (0.52-1.04); Estimated Glomerular Filt Rate 54 ml/min (>60); GFR (African American) 65 ML/MIN (>60); Globulin 2.4 g/dL (1.3-3.2); Glucose 83 mg/dl (74-100); HDL Cholesterol 40 mg/dl (40-60); Potassium 5.8 mmoL/L (3.5-5.1); Sodium 137 mmol/L (136-145); Total Protein,Serum 6.7 g/dl (6.3-8.2); Triglycerides 208 mg/dl (30-150)
--- OUTSIDE RECORDS SUMMARY | 2025-09-10 09:02 | XMS_ITS | Clinical Summary ---
Author Organization Healthcare Address [address] [place] [address] Care Team Providers Care Lift Supervisor Name Role Phone Pcp, No Primary Care Provider Unavailabl e Social History Tobacco Use Types Packs/Day Years Used Date Smoking Tobacco: Never Assessed Comments Unknown Sex and Gender Information Value Date Recorded Sex Assigned at Not on file Legal Sex Female 11:19 AM EDT Gender Identity Not on file Sexual Orientation Not on file Plan of Treatment Health Maintenance Due Date Last Done Comments [facility]-Bone Density Scan 1950 [facility]-Depression Screening 1950 [facility]-/Child/Adol SDOH Screenings 1950 [facility]- SDOH Screenings 1967 [facility]-Adult SDOH Screenings 1967 [facility]-DTaP,Tdap,and Td Vaccines (1 - Tdap) 1968 [facility]-RSV Vaccine: 60+ Years or (1 - 1-dose 75+ series) 2024 [id number] Vaccine ( - 2024- season) 2025 10/06/2022, 06/21/2022, 09/30/2021, Additional history exists [facility]-Influenza Vaccine (#1) 2025 [facility]-Hepatitis A Vaccines Aged Out 07/07/2019 No longer eligible based on patient's age to complete this topic [facility]-Zoster Vaccines Completed 03/15/2021, [facility]-Pneumococcal Vaccine: 50+ Years Completed 06/21/2022, 10/28/2018 HPV Vaccines Aged Out No longer eligi ble based on patient's age to complete this topic [facility]-HIB Vaccines Aged Out No longer e ligible based on patient's age to complete this topic [facility]-IPV Vaccines Aged Out No longer e ligible based on patient's age to complete this topic [facility]-Rotavirus Vaccines Aged Out No lo nger eligible based on patient's age to complete this topic Insurance MEDICARE Care Teams Lift Supervisor Relationship Specialty Start Date End Date Pcp, Julia [address] [place] [address] PCP - General Family Medicine 03/10/23
== END 2025-09-08 23:59 ==
LOC: LAB.DROPOF 09-10 08:56
PROVIDERS: PCP Internal Medicine; Visit Provider Internal Medicine
DX: E78.5 Hyperlipidemia, unspecified (principal); I10 Essential (primary) hypertension; I48.0 Paroxysmal atrial fibrillation
CPT/HCPCS: 80053; 80061

== ENCOUNTER 2025-09-23 07:26 | Day surgery (SDC) | payer MEDICARE, OTHER, SELFPAY ==
[2025-09-23 07:36] VITALS: BMI 31.7
[2025-09-23 07:45] VITALS: PULSE 63
[2025-09-23] MEDS: LIDOCAINE 1% W/EPI 1:100,000 20ML VIAL 20 ML IJ (07:45)
[2025-09-23 08:28] VITALS: BP 105/54; PULSE 60; RESP 20; O2SAT 96
--- NOTE | 2025-09-23 08:38 | P.PCN_ITS ---
[facility] Loop Recorder Date: 09/23/25 Time: 08:15 Procedure Performed:: Removal of current loop recorder due to end-of-life Implantation of new loop recorder Indication:: Paroxysmal A-fib management with history of CVA/cryptogenic stroke Technique:: Patient was brought to the cardiac Court [place]. After informed consent was obtained, 1% lidocaine was used anesthetize the area over the existing loop recorder. #10 scalpel was used to dissect down to the device and forceps was used for removal. After the existing loop recorder was removed, 1% lidocaine with epinephrine was used to anesthetize the site along the left anterior aspect of the chest near the sternal border. Using the preformed scalpel, an incision was made and using the supplied preloaded apparatus, the loop recorder was placed subcutaneously without difficulty. Following the deployment of the loop recorder interrogation of the device was performed to ensure appropriate voltage was being detected. Once this was verified, nikita were placed to approximate the edges of both incisions and the patient was prepped to discharge home. Patient tolerated the procedure well with minimal discomfort. Impression:: Successful removal of existing loop recorder Successful implantation of new loop recorder Serial Number:: [employer] assert-IQ EL plus Model number [id number] Serial #[id number] Plan:: Routine postop care
== END 2025-09-23 09:31 | disposition home or self-care (01) ==
PROVIDERS: PCP Internal Medicine; Visit Provider Internal Medicine
DX: I48.0 Paroxysmal atrial fibrillation (principal); Z45.09 Encounter for adjustment and management of other cardiac device; R94.39 Abnormal result of other cardiovascular function study; I25.118 Atherosclerotic heart disease of native coronary artery with other forms of angina pectoris; R94.31 Abnormal electrocardiogram [ECG] [EKG]; I10 Essential (primary) hypertension; E78.5 Hyperlipidemia, unspecified; K21.9 Gastro-esophageal reflux disease without esophagitis; Z86.73 Personal history of transient ischemic attack (TIA), and cerebral infarction without residual deficits; Z79.899 Other long term (current) drug therapy; Z88.2 Allergy status to sulfonamides; Z88.8 Allergy status to other drugs, medicaments and biological substances; Z82.49 Family history of ischemic heart disease and other diseases of the circulatory system
CPT/HCPCS: 33285; 33286; C1764; J0690; J2004

== ENCOUNTER 2025-09-23 10:29 | Outpatient (CLI) | payer MEDICARE, OTHER, SELFPAY ==
[2025-09-23 14:47] LABS: Potassium 4.4 mmoL/L (3.5-5.1)
--- OUTSIDE RECORDS SUMMARY | 2025-09-24 14:20 | XMS_ITS | Clinical Summary ---
Author Organization Healthcare Address [address] [place] [address] Care Team Providers Care Diamond Powder Technician Name Role Phone Pcp, No Primary Care [...] or (1 - 1-dose 75+ series) 2024 [id number] Vaccine ( - 2024- season) 2025 10/06/2022, [...] complete this topic Insurance MEDICARE Care Teams Diamond Powder Technician Relationship Specialty Start Date End Date Pcp, Julia [address] [place] [address] PCP - General Family Medicine 03/10/23
== END 2025-09-23 23:59 | disposition home or self-care (01) ==
LOC: LAB.DROPOF 09-24 14:10
PROVIDERS: PCP Internal Medicine; Visit Provider Internal Medicine
DX: E87.5 Hyperkalemia (principal)
CPT/HCPCS: 84132